=== PATIENT | female | born 1975 | race Caucasian/White ===

== ENCOUNTER 2018-08-25 09:47 | Outpatient (CLI) | payer MEDICARE, OTHER | END 2018-08-25 09:48 | disposition home or self-care (01) | LOC: BICMAMMO 09:47 | PROVIDERS: ATTEND Family Medicine | DX: Z12.31 Encounter for screening mammogram for malignant neoplasm of breast (principal); Z80.3 Family history of malignant neoplasm of breast | CPT/HCPCS: 77063; 77067 ==

== ENCOUNTER 2020-09-10 09:33 | Outpatient (CLI) | payer MEDICARE, MEDICAID ==
--- NOTE | 2020-09-10 10:20 | MMO ---
Bilateral MAMMO Bilat Screen [facility]. CLINICAL HISTORY: Patient is 44 years old and is seen for screening. The patient has no family history of breast cancer. The patient has no personal history of cancer. VIEWS: The views performed were: bilateral craniocaudal with tomosynthesis; bilateral mediolateral oblique with tomosynthesis; and bilateral exaggerated craniocaudal. FILMS COMPARED: The present examination has been compared to prior imaging studies performed at [facility] on 08/06/2016, 08/24/2017 and 08/25/2018. This study has been interpreted with the assistance of computer-aided detection. MAMMOGRAM FINDINGS: The breasts are heterogeneously dense, which could obscure a lesion on mammography. There is a mass seen in the lower-outer region of the right breast. In the left breast, there are no suspicious masses, calcifications or areas of architectural distortion. IMPRESSION: MASS IN THE RIGHT BREAST REQUIRES ADDITIONAL EVALUATION. SPOT COMPRESSION IS RECOMMENDED. AN ULTRASOUND EXAM IS RECOMMENDED. ADDITIONAL IMAGING. THE RESULTS OF THIS EXAM WERE SENT TO THE PATIENT. ACR BI-RADS Category 0 - Incomplete: Need additional imaging evaluation. [facility] will notify the patient of the need for additional imaging services. MAMMOGRAPHY NOTE: 1. A negative mammogram report should not delay a biopsy if a dominant of clinically suspicious mass is present. 2. Approximately 10% to 15% of breast cancers are not detected by mammography. 3. Adenosis and dense breasts may obscure an underlying neoplasm. Reported by: MIRACLE MORROW MD Electonically Signed: [id number]
== END 2020-09-10 09:34 | disposition home or self-care (01) ==
LOC: BICMAMMO 09:33
PROVIDERS: ATTEND Family Medicine
DX: Z12.31 Encounter for screening mammogram for malignant neoplasm of breast (principal); N63.13 Unspecified lump in the right breast, lower outer quadrant
CPT/HCPCS: 77063; 77067

== ENCOUNTER 2020-09-18 08:56 | Outpatient (CLI) | payer MEDICARE, MEDICAID ==
--- NOTE | 2020-09-18 09:40 | MMO ---
Right Breast MAMMO Unilat Diag [facility]. CLINICAL HISTORY: Patient is 44 years old and is seen for diagnostic exam. The patient has no family history of breast cancer. The patient has no personal history of cancer. VIEWS: The views performed were: right craniocaudal with tomosynthesis; right mediolateral oblique with tomosynthesis; and right mediolateral with tomosynthesis. FILMS COMPARED: The present examination has been compared to prior imaging studies performed at [facility] on 08/24/2017, 08/25/2018, 09/10/2020 and 09/18/2020. This study has been interpreted with the assistance of computer-aided detection. MAMMOGRAM FINDINGS: The breast is heterogeneously dense, which could obscure a lesion on mammography. There is a round mass measuring 5 millimeters with circumscribed margins seen in the right breast at 8 o'clock. cyst There are no suspicious masses, suspicious calcifications, or new areas of architectural distortion. IMPRESSION: THERE IS NO MAMMOGRAPHIC EVIDENCE OF MALIGNANCY. A ROUTINE FOLLOW-UP MAMMOGRAM IN 1 YEAR IS RECOMMENDED. THE RESULTS OF THIS EXAM WERE SENT TO THE PATIENT. ACR BI-RADS Category 2 - Benign finding MAMMOGRAPHY NOTE: 1. A negative mammogram report should not delay a biopsy if a dominant of clinically suspicious mass is present. 2. Approximately 10% to 15% of breast cancers are not detected by mammography. 3. Adenosis and dense breasts may obscure an underlying neoplasm. Reported by: MARTY BAY MD Electonically Signed: [id number]
--- NOTE | 2020-09-18 12:18 | ULT ---
RIGHT BREAST ULTRASOUND LIMITED: Date: 09/18/2020 HISTORY: Evaluate abnormal finding on prior mammogram. FINDINGS: The right breast is evaluated with attention to the 8 o'clock position, 2.0 cm from the nipple. There is a 0.5 x 0.7 x 0.6 cm diameter benign cyst. This appears to account for the mammographic find ing. IMPRESSION: BI-RADS Category 2 - Benign findings. Benign cyst in the right breast, 8 o'clock position, 2.0 cm from the nipple. POS: OFF
== END 2020-09-18 08:57 | disposition home or self-care (01) ==
LOC: BICMAMMO 08:56
PROVIDERS: ATTEND Family Medicine
DX: N63.10 Unspecified lump in the right breast, unspecified quadrant (principal)
CPT/HCPCS: 76642; 77065; G0279

== ENCOUNTER 2021-09-12 10:06 | Outpatient (CLI) | payer MEDICARE, OTHER | END 2021-09-12 10:07 | disposition home or self-care (01) | LOC: BICMAMMO 10:06 | PROVIDERS: ATTEND Clinical Nurse Specialist Medical-Surgical | DX: Z12.31 Encounter for screening mammogram for malignant neoplasm of breast (principal) | CPT/HCPCS: 77063; 77067 ==

== ENCOUNTER 2022-10-06 09:55 | Outpatient (CLI) | payer MEDICARE, MEDICAID | END 2022-10-06 09:56 | disposition home or self-care (01) | LOC: BICMAMMO 09:55 | PROVIDERS: ATTEND Specialist | DX: Z12.31 Encounter for screening mammogram for malignant neoplasm of breast (principal) | CPT/HCPCS: 77063; 77067 ==

== ENCOUNTER 2023-09-02 07:34 | Outpatient (CLI) | payer MEDICARE, MEDICAID | END 2023-09-02 07:35 | disposition home or self-care (01) | LOC: NM 07:34 | PROVIDERS: ATTEND Internal Medicine | DX: K21.9 Gastro-esophageal reflux disease without esophagitis (principal); R11.2 Nausea with vomiting, unspecified; K52.9 Noninfective gastroenteritis and colitis, unspecified | CPT/HCPCS: 78264; A9503 ==

== ENCOUNTER 2023-11-24 10:24 | Outpatient (CLI) | payer MEDICARE, MEDICAID | END 2023-11-24 10:25 | disposition home or self-care (01) | LOC: BICMAMMO 10:24 | PROVIDERS: ATTEND Specialist | DX: Z12.31 Encounter for screening mammogram for malignant neoplasm of breast (principal) | CPT/HCPCS: 77063; 77067 ==